=== PATIENT | female | born 1975 | race Two or more races ===

== ENCOUNTER 2019-11-17 22:29 | Emergency (ER) | payer OTHER ==
[~2019-11-17] VITALS: Ht 162.6 cm; Wt 59.0 kg
[2019-11-18] MEDS ORDERED: ORPHENADRINE C100 MG PO (02:26)
[2019-11-18] MEDS ORDERED: MEDROL8 MG PO (02:26)
== END 2019-11-18 02:36 | disposition home or self-care (01) ==
LOC: ER 22:29
DX: G51.32 Clonic hemifacial spasm, left (principal)